=== PATIENT | female | born 1970 | race African-American/Black ===

== ENCOUNTER 2017-02-09 15:19 | Emergency (ER) | payer OTHER ==
[2017-02-09] MEDS ORDERED: Ibuprofen 800 MG TAB ONE (15:45)
--- NOTE | 2017-02-09 16:02 | RAD ---
LEFT ELBOW THREE VIEWS: 02/09/17 HISTORY: Elbow pain and swelling. There is some arthritic changes of the elbow. There is some ossification in the region of the ulnar c ollateral ligament which may be on the basis of old injury. There is no signs of fracture or joint ef fusion. IMPRESSION: No acute findings. POS: [facility]
[2017-02-09] MEDS ORDERED: Ketorolac Tromethamine 30 MG/ML VIAL ONE (18:44)
== END 2017-02-09 16:47 | disposition home or self-care (01) ==
LOC: ERS 15:19
DX: M19.022 Primary osteoarthritis, left elbow (principal); J45.909 Unspecified asthma, uncomplicated; Z79.899 Other long term (current) drug therapy
CPT/HCPCS: J1885

== ENCOUNTER 2017-08-07 21:51 | Emergency (ER) | payer OTHER ==
[2017-08-07 22:17] LABS: #Basophils 0.2 thou/uL (0.0-0.2); #Eosinphils 0.1 thou/uL (0.0-0.7); #Monocytes 0.8 thou/uL (0.11-0.59); #Neutrophils 9.7 thou/uL (1.40-6.50); %Basophils 1.2 % (0.0-1.0); %Lymphocytes 15.9 % (21.0-51.0); %Monocytes 6.2 % (0.0-10.0); %Neutrophils 75.7 % (42.0-75.0); Hemoglobin 11.9 g/dL (12.0-16.0); Mean Corpuscular HGB CONC 32.4 g/dL (32.0-36.0); Mean Corpuscular Hemoglobin 25.8 pg (27.0-31.0); Mean Corpuscular Volume 79.4 fl (81.0-99.0); Mean Platelet Volume 7.2 fL (7.4-10.4); Platelet Count 503 thou/uL (130-400); RBC Distribution Width 14.2 % (11.5-14.5); Red Blood Cell (RBC) Count 4.61 mill/uL (4.20-5.40); White Blood Cell (WBC) Count 12.8 thou/uL (4.8-10.8)
[2017-08-07 22:21] LABS: Bilirubin Negative (Negative); Blood, Urine Negative (Negative); Clarity CLEAR (Clear); Glucose, Urine (Dipstick) Negative (Negative); Leukocyte Negative (Negative); Nitrite Negative (Negative); Protein, Urine (Dipstick) Negative (Neg-Trace); Specific Gravity, Urine 1.025 (1.002-1.036); pH, Urine 5.5 (5.0-9.0)
[2017-08-07 22:29] LABS: Pregnancy Test - Urine (BHCG) Negative (Negative); Pregu Control Background? CLEAR/WHITE (CLR/WHITE); Pregu Control Bar Appear? YES (CONTROL BAR); Specific Gravity 1.025 (1.002-1.036)
[2017-08-07 22:42] LABS: ALT (SGPT) 13 U/L (8-55); AST (SGOT) 16 U/L (5-34); Albumin 4.5 g/dL (3.5-5.0); Alkaline Phosphatase 95 U/L (40-150); Anion Gap 11 mmol/L (10-20); BUN (Urea Nitrogen) 13 mg/dL (7.0-18.7); Bilirubin, Total 0.3 mg/dL (0.2-1.2); Calc. Creatinine Clearance 0 mL/min (70-130); Calcium 9.7 mg/dL (7.8-10.44); Carbon Dioxide 28 mmol/L (22-29); Chloride 101 mmol/L (98-107); Estimated GFR-MDRD Greater than 90; Globulin 4.1 g/dL (2.4-3.5); Glucose 112 mg/dL (70-105); Potassium 3.3 mmol/L (3.5-5.1); Protein, Total 8.6 g/dL (6.0-8.3); Sodium 137 mmol/L (136-145)
== END 2017-08-08 00:06 | disposition home or self-care (01) ==
LOC: ERS 21:51
DX: Z03.89 Encounter for observation for other suspected diseases and conditions ruled out (principal); J45.909 Unspecified asthma, uncomplicated
CPT/HCPCS: 36415; 80053; 81003; 81025; 85025; 87480; 87491; 87510; 87591; 87660; 99283

== ENCOUNTER 2017-11-04 10:11 | Emergency (ER) | payer OTHER ==
[2017-11-04 11:01] LABS: Bilirubin Negative (Negative); Blood, Urine Negative (Negative); Clarity CLEAR (Clear); Glucose, Urine (Dipstick) Negative (Negative); Leukocyte Negative (Negative); Nitrite Negative (Negative); Protein, Urine (Dipstick) Negative (Neg-Trace); Urobilinogen 0.2 mg/dL (0.2-1.0); pH, Urine 7.5 (5.0-9.0)
[2017-11-04 11:04] LABS: Specific Gravity, Urine 1.002 (1.002-1.036)
[2017-11-04 11:05] LABS: Pregnancy Test - Urine (BHCG) Negative (Negative); Pregu Control Background? CLEAR/WHITE (CLR/WHITE); Pregu Control Bar Appear? YES (CONTROL BAR); Specific Gravity 1.002 (1.002-1.036)
== END 2017-11-04 11:25 | disposition home or self-care (01) ==
LOC: ERS 10:11
DX: R10.2 Pelvic and perineal pain (principal)
CPT/HCPCS: 81003; 81025; 99284

== ENCOUNTER 2019-01-15 12:21 | Emergency (ER) | payer OTHER | END 2019-01-15 18:23 | disposition home or self-care (01) | LOC: ERS 12:21 | DX: N92.6 Irregular menstruation, unspecified (principal); R05 Cough | CPT/HCPCS: 99281 ==